=== PATIENT | male | born 1955 | race Caucasian/White ===

== ENCOUNTER 2020-09-13 10:05 | Emergency (ER) | payer MEDICARE, OTHER, SELFPAY ==
[2020-09-13 10:11] VITALS: BP 137/88; PULSE 78; RESP 16; TEMP 36.9; O2SAT 99
[2020-09-13] MEDS: CYCLOBENZAPRINE HCL 5 MG TABLET PO (11:16)
[2020-09-13] MEDS: KETOROLAC (*BKC) 60 MG/2 ML VIAL IM (11:18)
[2020-09-13 11:54] VITALS: BP 178/98; PULSE 75; RESP 16; O2SAT 100
--- NOTE | 2020-09-13 12:23 | ED.NECK ---
HPI - Neck Pain/Injury General Chief Complaint: Neck Pain/Injury Stated Complaint: neck pain Time Seen by Provider: 09/13/20 10:48 Source: patient and RN notes reviewed Mode of arrival: ambulatory Limitations: no limitations History of Present Illness HPI Narrative: This is a 64 year old male with history of chronic neck pain who presents for evaluation of neck stiffness. PAtient reports he has intermittent issues of worsening neck stiffness. He states he woke up yesterday morning with neck stiff ness. He states he just laid still and this morning his stiffness feels worse. He has minimal pain at rest but reports he has shooting pain when he tries to turn his neck. He has not taken any medication for his pain. He reports history of neck surgery but he has been having these issues with stiffness for 5 years . He denies nausea, vomiting, dysphagia, arm weakness, numbness or tingling. Related Data Home Medications Medication Instructions Recorded Confirmed aspirin 81 mg tablet,delayed 81 mg PO DAILY 12/24/18 08/08/20 release Allergies Allergy/AdvReac Type Severity Reaction Status Date / Time No Known Allergies Allergy Unverified 08/08/20 09:45 Review of Systems Review of Systems: All systems reviewed & are unremarkable except as noted in HPI and below PMFSH Past Medical History Medical History (Updated 09/13/20 @ 12:41 by Bridgette Elliott MD) Cervical radiculopathy Chronic neck pain Diabetes mellitus type 2, uncontrolled Surgical History Surgical History (Updated 06/19/20 @ 14:00 by Rachel Pimentel PA-C) H/O nasal septoplasty History of cervical discectomy S/P sinus surgery Family History Family History Father Hypertension Family history of coronary artery disease Social History Social History (Updated 08/08/20 @ 09:46 by Destiny Mendez) Smoking status: Never smoker Second hand tobacco smoke exposure: No Alcohol intake: never Substance use: never Substance use type: does not use Gender identity (if verbalized by the patient): Male Exam Const: General: no acute distress and alert Orientation/consciousness: patient oriented x3 Eyes: EOM: EOMs intact bilaterally Neck: Neck: no meningeal signs Chest: Chest palpation & inspection: normal inspection of the chest Resp: Effort & Inspection: normal respiratory effort and no retractions Auscultation: clear to auscultation bilaterally Cardio: Rate: regular rate Rhythm: regular rhythm Heart sounds: no murmurs Neuro: General: patient oriented x3 and moves all extremities Cranial nerves: Yes Nystagmus not present Psych: Mental Status: mental status grossly normal Affect: normal affect Course Reevaluation(s) Reevaluation #1: Patient states he is ready for discharge home. Date: 09/13/20 Time: 12:40 Vital Signs Vital signs: Vital Signs Temperature 98.5 F 09/13/20 10:11 Pulse Rate 78 09/13/20 10:11 Respiratory Rate 16 09/13/20 10:11 Blood Pressure 137/88 09/13/20 10:11 Pulse Oximetry 99 09/13/20 10:11 Temperature 98.5 F 09/13/20 10:11 Pulse Rate 77 09/13/20 12:46 Respiratory Rate 16 09/13/20 12:46 Blood Pressure 118/75 09/13/20 12:46 Pulse Oximetry 100 09/13/20 12:46 Discharge Plan Discharge Clinical Impression: Strain of neck muscle, Chronic neck pain Patient Disposition: Home, Self-Care Condition: Stable Instructions: Antibiotic Form, Cervical Strain (ED), Cervical Radiculopathy (ED) Prescriptions: New cyclobenzaprine 10 mg tablet 10 mg PO TID PRN (Reason: muscle spasm) Qty: 14 RF: 0 methylprednisolone [Medrol (Erick)] 4 mg tablets,dose pack See Rx Instructions .ROUTE .COMPLEX Qty: 21 RF: 0 naproxen 375 mg tablet 375 mg PO BID PRN (Reason: pain) Qty: 14 RF: 0 No Action aspirin 81 mg tablet,delayed release (DR/EC) 81 mg PO DAILY RF: 0 pantoprazole [Protonix] 40 mg
[2020-09-13 12:46] VITALS: BP 118/75; PULSE 77; RESP 16; O2SAT 100
== END 2020-09-13 12:47 | disposition home or self-care (01) ==
PROVIDERS: Emergency Provider General Practice; PCP Family Medicine
DX: S16.1XXA Strain of muscle, fascia and tendon at neck level, initial encounter (principal); M54.2 Cervicalgia; G89.29 Other chronic pain; E11.9 Type 2 diabetes mellitus without complications; Z79.82 Long term (current) use of aspirin; Z79.84 Long term (current) use of oral hypoglycemic drugs; Z79.899 Other long term (current) drug therapy; X58.XXXA Exposure to other specified factors, initial encounter
CPT/HCPCS: 96372; 99283; A9270; J1885

== ENCOUNTER → 2021-04-08 11:03 | Outpatient (CLI) | payer MEDICARE, OTHER, SELFPAY ==
--- NOTE | ~2021-04-08 | XR_ITS ---
[id number] 04/08/2021 11:21 Indication: Radiculopathy. Neck pain. Procedure: 3 views cervical spine Comparison: No prior studies for comparison. Findings: Reversal of cervical lordosis. No fracture, subluxation or dislocation. There is degenerati ve changes at C5-6 and C6-7. Vertebral body heights are maintained. Moderate multilevel uncinate dege nerative change. Lung apices are normal. No prevertebral soft tissue abnormality. Odontoid process is normal. Impression: 1: Moderate cervical spondylosis. Reviewed, dictated and finalized at location B. 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
== END ==
PROVIDERS: PCP Family Medicine; Visit Provider Family Medicine
DX: M47.22 Other spondylosis with radiculopathy, cervical region (principal)
CPT/HCPCS: 72040

== ENCOUNTER 2022-05-15 16:56 | Emergency (ER) | payer MEDICARE, OTHER, SELFPAY ==
--- NOTE | ~2022-05-15 | XR_ITS ---
EXAMINATION: XR elbow RT min 3V INDICATION: Right elbow pain TECHNIQUE: Four views of the right elbow are obtained. COMPARISON: None available FINDINGS: Bone alignment is normal. No fracture is identified. There appears to be an elbow joint eff usion. The soft tissues are unremarkable. IMPRESSION: 1. Elbow joint effusion, suggestive of occult fracture. Reviewed, dictated and finalized at location F.
[2022-05-15 16:58] VITALS: BP 141/69; PULSE 76; RESP 16; TEMP 36.6; O2SAT 99
--- NOTE | 2022-05-15 17:16 | PC.NURSE ---
Pt states that he is moving houses and has furniture rearranged. While attempting to use the bathroom Thursday night around 0200, pt tripped over items in his house and fell onto R elbow. Pt states he did not initially have too much pain, but states today after waking up the pain started to become more severe. Pt also noticed swelling to his R elbow. Pt only gets relief while holding the elbow at a 90 degree angle. Pt states he has taken tylenol for the pain with little relief while moving the right arm. PMS is present distal to the injury.
--- NOTE | 2022-05-15 18:26 | ED.UPPEXIN ---
HPI - Extremity Injury (Upper) General Chief Complaint: Extremity Injury, Upper Stated Complaint: elbow injury Time Seen by Provider: 05/15/22 17:06 Source: RN notes reviewed History of Present Illness HPI narrative: Patient presents emergency department from home for right elbow pain. Patient states he suffered a fall on the evening of May 13. States that [place] in [place] and he was getting up to go to the bathroom and tripped over some of the furniture he states he fell into a another piece of furniture striking his right elbow. States that since that time has had aching in the right elbow with pain with full extension and flexion when he tries to touch his nose. He denies any other trauma or injury. He denies any numbness or tingling in the extremities denies any pain in the shoulder or wrist Related Data Home Medications Medication Instructions Recorded Confirmed aspirin 81 mg tablet,delayed 81 mg PO DAILY 12/24/18 04/22/22 release Allergies Allergy/AdvReac Type Severity Reaction Status Date / Time No Known Allergies Allergy Verified 05/15/22 16:56 Review of Systems Review of Systems: Gen.: Denies fevers or chills Musculoskeletal: See HPI Neuro: Denies numbness, tingling, weakness Skin: Denies rash Endo: Denies DM PMFSH Past Medical History Medical History Cervical radiculopathy Chronic neck pain Controlled diabetes mellitus Diabetes mellitus type 2, uncontrolled Obesity Surgical History Surgical History H/O nasal septoplasty History of cervical discectomy S/P sinus surgery Family History Family History Father Hypertension Family history of coronary artery disease Social History Social History Smoking status: Never smoker Second hand tobacco smoke exposure: No Alcohol intake: never Substance use: never Substance use type: does not use Living arrangements: with family Occupation/Education: retired Gender identity (if verbalized by the patient): Male Sexual Orientation (if Verbalized by the Patient): Straight or Heterosexual Spiritual care concerns: No Exam Narrative: APPEARANCE: No acute distress, nontoxic, resting in bed Eyes: EOMI HEENT: Normocephalic, atraumatic, RESPIRATORY: No respiratory distress MUSCULOSKELETAl: Right elbow has mild swelling with no ecchymosis no tenderness palpation patient with pain only with full extension of the elbow and flexion greater than 90 degrees there is no tenderness of the right shoulder or wrist radial pulse 2+ neurovascular intact NEURO: Awake and alert. Following commands, speech normal, no focal deficits SKIN:: Warm, dry. Normal Color no rash or lesions Course Course Emergency Course: Called and discussed with Dr. Fletcher for orthopedic suspect occult radial head fracture request patient placed in sling with follow-up as an outpatient Discussed with patient results of workup and diagnosis. Discussed need for follow-up with primary care, proper use of medication, and reasons to return to the emergency department. Patient understands and agrees to current treatment plan Vital Signs Vital signs: Vital Signs Temperature 97.8 F 05/15/22 16:58 Pulse Rate 76 05/15/22 16:58 Respiratory Rate 16 05/15/22 16:58 Blood Pressure 141/69 H 05/15/22 16:58 Pulse Oximetry 99 05/15/22 16:58 Oxygen Delivery Room Air 05/15/22 16:58 Temperature 97.8 F 05/15/22 16:58 Pulse Rate 76 05/15/22 16:58 Respiratory Rate 16 05/15/22 16:58 Blood Pressure 141/69 H 05/15/22 16:58 Pulse Oximetry 99 05/15/22 16:58 Oxygen Delivery Room Air 05/15/22 16:58 MDM - Extremity Injury (Upper) MDM Narrative Medical decision making narrative: Patient with a fall 2 nights ago h
[2022-05-15] MEDS: IBUPROFEN 600 MG TABLET PO (18:57)
[2022-05-15 19:00] VITALS: BP 127/63; PULSE 67; RESP 18; O2SAT 100
--- NOTE | 2022-05-15 19:06 | PC.NURSE ---
PMS present after applying sling to right arm.
== END 2022-05-15 19:10 | disposition home or self-care (01) ==
PROVIDERS: Emergency Provider Emergency Medicine; PCP Family Medicine
DX: S59.901A Unspecified injury of right elbow, initial encounter (principal); M25.421 Effusion, right elbow; E11.9 Type 2 diabetes mellitus without complications; E66.9 Obesity, unspecified; Z68.28 Body mass index [BMI] 28.0-28.9, adult; Z79.82 Long term (current) use of aspirin; R93.6 Abnormal findings on diagnostic imaging of limbs; Z79.84 Long term (current) use of oral hypoglycemic drugs; W18.09XA Striking against other object with subsequent fall, initial encounter
CPT/HCPCS: 73080; 99283; A4565; A9270

== ENCOUNTER 2022-11-25 09:42 | Outpatient (CLI) | payer MEDICARE, OTHER, SELFPAY ==
[2022-11-25 10:56] LABS: Influenza A QL RT-PCR Negative (Negative); Influenza B QL RT-PCR Negative (Negative); SARS-CoV-2 RNA PCR Negative (Negative)
== END 2022-11-25 09:43 | disposition home or self-care (01) ==
LOC: ANHLAB 09:44
PROVIDERS: PCP Family Medicine; Visit Provider Physician Assistant
DX: R50.9 Fever, unspecified (principal); R05.9 Cough, unspecified; Z20.822 Contact with and (suspected) exposure to COVID-19
CPT/HCPCS: 87636

== ENCOUNTER 2023-02-26 08:35 | Outpatient (CLI) | payer MEDICARE, OTHER, SELFPAY ==
[2023-02-26 09:23] LABS: Influenza A QL RT-PCR Negative (Negative); Influenza B QL RT-PCR Negative (Negative); RSV RNA, RT-PCR Negative (Negative); SARS-CoV-2 RNA PCR Negative (Negative)
== END 2023-02-26 08:36 | disposition home or self-care (01) ==
LOC: ANHLAB 08:37
PROVIDERS: PCP Family Medicine; Visit Provider Physician Assistant Medical
DX: R05.9 Cough, unspecified (principal); R06.2 Wheezing; Z20.822 Contact with and (suspected) exposure to COVID-19
CPT/HCPCS: 87637

== ENCOUNTER 2023-03-09 13:46 | Outpatient (CLI) | payer MEDICARE, OTHER, SELFPAY ==
--- NOTE | ~2023-03-09 | XR_ITS ---
EXAMINATION: XR chest 2V 03/09/2023 14:08 INDICATION: Pneumonia. PROCEDURE: 2 view chest COMPARISON: 04/13/2012 FINDINGS: The lungs are clear. The cardiomediastinal silhouette is within normal limits. There are no pleural effusions. There is no pneumothorax suspected. IMPRESSION: 1: NO ACUTE CARDIOPULMONARY DISEASE. Reviewed, dictated and finalized at location B. CTOR OF PATIENT CARE
== END 2023-03-09 13:47 | disposition home or self-care (01) ==
PROVIDERS: PCP Family Medicine; Visit Provider Physician Assistant Medical
DX: R05.9 Cough, unspecified (principal); R06.2 Wheezing
CPT/HCPCS: 71046

== ENCOUNTER 2023-04-10 12:26 | Outpatient (CLI) | payer MEDICARE, OTHER, SELFPAY ==
--- NOTE | ~2023-04-10 | XR_ITS ---
Clinical Indication: Upper respiratory infection PA and lateral views of the chest: Comparison: 03/09/2023 Findings: The lungs are clear, without evidence of focal consolidation or pleural effusion. Cardiome diastinal silhouette is within normal limits. Bones and soft tissues are unremarkable. Impression: Normal chest. Reviewed, dictated and finalized at [facility]. 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
== END 2023-04-10 12:27 | disposition home or self-care (01) ==
PROVIDERS: PCP Family Medicine; Visit Provider Physician Assistant
DX: R05.9 Cough, unspecified (principal); J06.9 Acute upper respiratory infection, unspecified; R06.2 Wheezing
CPT/HCPCS: 71046

== ENCOUNTER 2023-04-22 12:25 | Outpatient (CLI) | payer MEDICARE, OTHER, SELFPAY ==
--- NOTE | ~2023-04-22 | CT_ITS ---
CT Scan of the Chest without Contrast: Clinical Indication: Chronic cough Technique: Contiguous sections were acquired throughout the chest without intravenous contrast. Dose reduction technique was used on this scan by utilizing automated exposure control and iterative recon struction technique. The dose-length product (DLP) was 226.04 mGy-cm. Findings: There is no evidence of any significant mediastinal, hilar or axillary lymphadenopathy. Coronary tawny ry calcifications are present. There is no evidence of pleural or pericardial effusion. 4 mm left basilar pulmonary nodule noted. Images through the upper abdomen reveal no abnormalities. Impression: 4 mm left basilar pulmonary nodule, most likely benign. According to Fleischner Society criteria, for a low-risk patient, no further follow-up required. For a high-risk patient, consider 12 month follow -up CT. Reviewed, dictated and finalized at [facility]. [employer] Impression: 4 mm left basilar pulmonary nodule, most likely benign. According to Fleischner Society criteria, for a low-risk patient, no further follow-up required. For a high-risk patient, consider 12 month follow-up CT.
== END 2023-04-22 12:26 | disposition home or self-care (01) ==
LOC: ANHIMG 12:25
PROVIDERS: PCP Family Medicine; Visit Provider Family Medicine
DX: R91.1 Solitary pulmonary nodule (principal); R05.3 Chronic cough
CPT/HCPCS: 71250

== ENCOUNTER 2023-08-26 10:10 | Outpatient (CLI) | payer MEDICARE, OTHER, SELFPAY | END 2023-08-26 10:11 | disposition home or self-care (01) | PROVIDERS: PCP Family Medicine; Visit Provider Family Medicine | DX: M25.561 Pain in right knee (principal) | CPT/HCPCS: 73562 ==

== ENCOUNTER 2023-10-30 07:58 | Outpatient (CLI) | payer MEDICARE, OTHER, SELFPAY ==
--- NOTE | 2023-10-30 15:55 | WPDPFTINT ---
PFT Procedure Performed PFT Procedure Performed Spirometry with Pre/Post Bronchodilator Plethysmography (Lung Vol) Diffusing Cap (DLCO) Flow Vol Loop PFT Interpretation Lung volumes were measured with the body plethysmography method. Lung volumes are unremarkable. Spirometry showed normal expiratory flow rates and a normal FEV1 to FVC ratio of 80%. Following administration of a bronchodilator there was no significant increase in expiratory flow rates. Lung diffusion capacity is within the normal range. The flow-volume loop is unremarkable. Impression: Spirometry, lung volumes, and lung diffusion capacity all within the normal range.
== END 2023-10-30 07:59 | disposition home or self-care (01) ==
LOC: ANHPFT 08:00
PROVIDERS: PCP Family Medicine; Visit Provider Family Medicine
DX: R05.3 Chronic cough (principal)
CPT/HCPCS: 94060; 94726; 94729

== ENCOUNTER 2023-11-08 09:16 | Emergency (ER) | payer MEDICARE, OTHER, SELFPAY ==
--- NOTE | ~2023-11-08 | XR_ITS ---
EXAMINATION: XR knee RT min 4V DATE: 11/08/2023 09:52 INDICATION: Right knee can't bear weight. Decreased range of motion. TECHNIQUE: 4 views of right knee were obtained. COMPARISON: Right knee radiographs 08/26/2023 FINDINGS: Alignment is normal. No fracture. There is mild tricompartmental osteoarthritis. No knee estuardo int effusion. IMPRESSION: 1. Mild right knee osteoarthritis. Reviewed, dictated and finalized at location A.
[2023-11-08 09:18] VITALS: BP 133/79; PULSE 66; RESP 17; TEMP 36.6; O2SAT 98
[2023-11-08 10:51] VITALS: BP 117/78; PULSE 63; RESP 18; TEMP 36.6; O2SAT 98
[2023-11-08] MEDS: KETOROLAC 30 MG/ML VIAL (*BKC) IM (10:52)
[2023-11-08] MEDS: HYDROcodone/acetaminophen (*CRX) 5-325 MG TABLET 1 TAB PO (10:53)
[2023-11-08] MEDS: methocarbamoL 750 MG TABLET PO (10:53)
--- NOTE | 2023-11-08 11:32 | ED.GENADULT ---
HPI - General Adult General Chief complaint: Extremity Injury, Lower Stated complaint: R. knee pain Time Seen by Provider: 11/08/23 09:51 History of Present Illness HPI narrative: This is a pleasant 68-year-old male presenting ED with right knee pain. The pain started yesterday evening. It is achy pain in his right knee that is worse with movement. No trauma fevers infection or swelling. Patient has had pain like this in the past as recently scheduled seen orthopedic surgeon but his pain improved and he did not follow-up. No other complaints at this time. He has taken Tylenol with minimal relief. Related Data Home Medications Medication Instructions Recorded Confirmed aspirin 81 mg tablet,delayed 81 mg PO DAILY 12/24/18 10/01/23 release Allergies Allergy/AdvReac Type Severity Reaction Status Date / Time No Known Allergies Allergy Verified 10/01/23 08:47 [facility] Past Medical History Medical History Cervical radiculopathy Chronic neck pain Controlled diabetes mellitus Degenerative joint disease of knee Diabetes mellitus type 2, uncontrolled Enlarged prostate with lower urinary tract symptoms (LUTS) Essential (primary) hypertension Gastro-esophageal reflux disease without esophagitis Obesity CL (obstructive sleep apnea) Pure hypercholesterolemia Right knee pain Surgical History Surgical History H/O nasal septoplasty History of cervical discectomy S/P sinus surgery Family History Family History Father Hypertension Family history of coronary artery disease Social History Social History Smoking status: Never smoker Second hand tobacco smoke exposure: No Alcohol intake: never Substance use: never Substance use type: does not use Do You Feel Safe in your Home?: Yes Lack of Transportation: No Lack of Food: Never True Current Housing: I Have Housing Concerned About Future Housing: No Difficulty Paying Gas/Electric Bills: No Difficulty Paying for Meds: No Currently Unemployed: No Education: Decline to Answer Difficulty w/ Childcare or Family Care: No Living arrangements: with family Occupation/Education: retired Gender identity (if verbalized by the patient): Male Sexual Orientation (if Verbalized by the Patient): Straight or Heterosexual Spiritual care concerns: No Exam Narrative: APPEARANCE: No apparent distress. Head: atraumatic. EYES: EOMI, NOSE: Atraumatic NECK: Trachea midline RESPIRATORY: No increased rate of breathing CARDIOVASCULAR: RRR, ABDOMINAL: Non-distended MUSCULOSKELETAl: Focal exam of the right knee revealed no swelling erythema or pain on passive motion. Worsening pain with active motion. Foot is neurovascularly intact. NEURO: Alert. Moving 4/4 extremities SKIN:: Warm, dry. Normal color PSYCHIATRIC: Normal affect Course Vital Signs Vital signs: Vital Signs Temperature 97.9 F 11/08/23 09:18 Pulse Rate 66 11/08/23 09:18 Respiratory Rate 17 11/08/23 09:18 Blood Pressure 133/79 11/08/23 09:18 Pulse Oximetry 98 11/08/23 09:18 Oxygen Delivery Room Air 11/08/23 09:18 Temperature 97.9 F 11/08/23 10:51 Pulse Rate 63 11/08/23 10:51 Respiratory Rate 18 11/08/23 10:51 Blood Pressure 117/78 11/08/23 10:51 Pulse Oximetry 98 11/08/23 10:51 Oxygen Delivery Room Air 11/08/23 09:18 Medical Decision Making [facility] Narrative Medical decision making narrative: -Course: 68-year-old male presenting with atraumatic right knee pain. Physical exam is unremarkable. X-ray showed arthritis. Patient's pain was treated he was discharged with primary care follow-up -DDX includes but is not limited to: Osteoarthritis, inflammatory arthritis, septic joint -Co-morbidities complicating care: H
[2023-11-08 11:44] VITALS: BP 119/71; PULSE 62; RESP 16; TEMP 36.2; O2SAT 99
== END 2023-11-08 11:46 | disposition home or self-care (01) ==
PROVIDERS: Emergency Provider Emergency Medicine; PCP Family Medicine
DX: M25.561 Pain in right knee (principal); I10 Essential (primary) hypertension; E11.9 Type 2 diabetes mellitus without complications; E78.00 Pure hypercholesterolemia, unspecified; E66.9 Obesity, unspecified; Z68.28 Body mass index [BMI] 28.0-28.9, adult; N40.1 Benign prostatic hyperplasia with lower urinary tract symptoms; M17.11 Unilateral primary osteoarthritis, right knee; G47.33 Obstructive sleep apnea (adult) (pediatric); K21.9 Gastro-esophageal reflux disease without esophagitis; Z79.82 Long term (current) use of aspirin; Z79.84 Long term (current) use of oral hypoglycemic drugs; Z79.85 Long-term (current) use of injectable non-insulin antidiabetic drugs
CPT/HCPCS: 73564; 96372; 99283; A9270; J1885

== ENCOUNTER 2023-11-13 08:50 | Outpatient (CLI) | payer MEDICARE, OTHER, SELFPAY ==
--- NOTE | ~2023-11-13 | US_ITS ---
EXAMINATION: US venous doppler LE RT DATE: 11/13/2023 09:31 INDICATION: Right lower limb pain, swelling and erythema TECHNIQUE: Grayscale ultrasound images without and with compression and Doppler ultrasound images of the right lower extremity veins were obtained. COMPARISON: None. FINDINGS: The visualized portions of right common femoral vein, profunda (deep) femoral vein, femoral vein, pop liteal vein, peroneal trunk, posterior tibial veins, peroneal veins, gastrocnemius vein and greater s aphenous vein outflow are patent. IMPRESSION: 1. No deep venous thrombosis in the right lower limb. Reviewed, dictated and finalized at location A.
== END 2023-11-13 08:51 | disposition home or self-care (01) ==
PROVIDERS: PCP Family Medicine; Visit Provider Physician Assistant Medical
DX: M79.604 Pain in right leg (principal); M25.561 Pain in right knee
CPT/HCPCS: 93971

== ENCOUNTER 2023-11-27 14:19 | Outpatient (CLI) | payer MEDICARE, OTHER, SELFPAY ==
--- NOTE | ~2023-11-27 | MR_ITS ---
EXAMINATION: MR knee RT wo con DATE: 11/27/2023 14:59 INDICATION: Right knee pain. TECHNIQUE: Magnetic resonance imaging (MRI) of the right knee was performed without intravenous contr ast. Sequences included axial PD-weighted FS FSE, coronal PD-weighted FSE and PD-weighted FS FSE, sag ittal PD-weighted FSE, and sagittal T2-weighted FS FSE. COMPARISON: Right knee radiographs 11/08/2023 FINDINGS: Medial compartment: There is a complex tear of body and posterior horn of medial meniscus. There is cartilage surface irr egularity of tibial condyle. There is shallow partial-thickness cartilage loss of femoral condyle, wo rst at the central articular surface. Tiny osteophytes are noted. Lateral compartment: Lateral meniscus is normal. Lateral compartment cartilage is normal. Tiny osteophytes are noted. Patellofemoral compartment: There is shallow partial-thickness cartilage loss of patellar medial and lateral facets and median ri dge. There is partial-thickness cartilage loss of trochlea, deep at the medial and central trochlea w ith mild subchondral edema-like marrow signal intensity. Osteophytes are noted. Ligaments and tendons: The anterior and posterior cruciate ligaments are normal. There are changes of prior sprains of media l collateral ligament and fibular collateral ligament characterized by increased signal intensity pro ximally. There is mild patellar tendinopathy. Fluid: There is a moderate-sized knee joint effusion. There is mild prepatellar and superficial infrapatella r bursitis. IMPRESSION: 1. Moderate chondrosis of patellofemoral compartment and mild chondrosis of medial compartment. 2. Tear of medial meniscus. 3. Moderate-sized knee joint effusion. Reviewed, dictated and finalized at location A. IMPRESSION: 1. Moderate chondrosis of patellofemoral compartment and mild chondrosis of med ial compartment. 2. Tear of medial meniscus. 3. Moderate-sized knee joint effusion.
== END 2023-11-27 14:20 | disposition home or self-care (01) ==
LOC: MICIMG 14:20
PROVIDERS: PCP Family Medicine; Visit Provider Nurse Practitioner Family
DX: M25.461 Effusion, right knee (principal); S83.241D Other tear of medial meniscus, current injury, right knee, subsequent encounter; X58.XXXD Exposure to other specified factors, subsequent encounter
CPT/HCPCS: 73721

== ENCOUNTER 2023-12-08 11:14 | Outpatient (CLI) | payer MEDICARE, OTHER, SELFPAY ==
--- NOTE | 2023-12-08 11:30 | ECG_ITS ---
Test Date: 2023-12-08 11:43:01 Measurements Intervals [place] Rate: 63 P: 92 GA: 165 QRS: -10 QRSD: 104 T: 42 QT: 390 QTc: 401 Interpretive Statements SINUS RHYTHM NORMAL EKG No previous ECG available for comparison Electronically Signed On 12-09-2023 10:11:32 CDT by Jose Juarez M.D.
[2023-12-08 12:07] LABS: Anion Gap 11 mmol/L (4-12); Blood Urea Nitrogen 13 mg/dL (9-20); Calcium 9.3 mg/dL (8.4-10.2); Carbon Dioxide 31 mmol/L (22-30); Chloride 97 mmol/L (98-107); Estimated Glomerular Filt Rate > 60; Glucose 140 mg/dL (65-110); Potassium 3.2 mmol/L (3.4-5.0); Sodium 139 mmol/L (137-145)
== END 2023-12-08 11:15 | disposition home or self-care (01) ==
LOC: ANHSURGERY 11:19
PROVIDERS: Anesthesiology; PCP Family Medicine; Visit Provider Orthopaedic Surgery
DX: Z01.818 Encounter for other preprocedural examination (principal); E11.65 Type 2 diabetes mellitus with hyperglycemia; I10 Essential (primary) hypertension
CPT/HCPCS: 36415; 80048; 93005

== ENCOUNTER 2023-12-09 02:53 | Day surgery (SDC) | payer MEDICARE, OTHER, SELFPAY ==
[2023-12-08 08:18] VITALS: BMI 28.6
--- NOTE | 2023-12-08 08:30 | PC.NURSE ---
Report to the Outpatient Waiting Room, entrance under the green pavilion located off [facility], at time __0630am_on date _12/09/23 . Planned Procedure Time: __08:30am .? Time changes happen often and if your time is changed the preop area will call you the afternoon before. - You and your visitor will be asked to self-screen and do not enter if you have any COVID symptoms. Please call surgeon if you need to reschedule. - A mask is optional within the hospital at this time. Patients may have clear liquids (water, carbonated beverages, clear teas, apple juice) until 3 hours prior to surgery with a maximum of 20 ounces. - No food from midnight until time of surgery and no smoking (0530am) Take only the following medications with a SIP of water on the morning of surgery: _Amlodipine, Coreg, Hydralizine ____Inhalers as needed DO NOT STOP ANY OF YOUR OTHER PRESCRIPTION MEDICATIONS PRIOR TO SURGERY EXCEPT THE FOLLOWING Medications to discontinue per physician Hold Aspirin and Trilogy till post op per Dr Nunes Date to take last dose__12/07/23 Please no make-up, nail french, hairspray, perfume, deodorant, or body powder the day of surgery.? No jewelry (including any body piercings) or valuables the day of surgery, leave them at home.? Please take a shower or bath the night before, or the morning of, surgery with an antibacterial soap.? Wear comfortable, loose fitting clothing. Hibicleanse scrub as directed per . - Jewelry must be removed prior to entering the operating room.? Rings and piercings that are not removed may be cut off. - The hospital will not accept responsibility for valuables.? - Please leave all valuables, including medications, at home the day of surgery. If you are going home after surgery, a licensed medical driver must drive you home.? - NO public transportation without another adult if you receive anesthesia. - We recommend that an adult stay with you for 24 hours following discharge. - We also recommend that you do not drive, make important decision, drink alcoholic beverages, or take any drugs that were not prescribed by your health care provider for at least 24 hours after your discharge time. Follow any additional instructions given to you from your surgeon. Telephone instructions given to __patient and asked if any additional questions and then verbalized understanding. Patient advised to call surgeon office or pre surgery nurse liaison [phone] if any additional questions.
[2023-12-09] VITALS (8 sets, daily range): BP systolic 99–124; BP diastolic 59–72; PULSE 66–74; RESP 12–68; TEMP 36.2–36.4; O2SAT 97–99; BMI 29.2
[2023-12-09] MEDS: CELECOXIB 200 MG CAPSULE PO (07:00)
[2023-12-09] MEDS: ACETAMINOPHEN 500 MG TABLET 1000 MG PO (07:00)
[2023-12-09 07:21] LABS: Glucose Point of Care 142 mg/dl (65-105)
--- NOTE | 2023-12-09 07:43 | WPDANESEPPF ---
Anes - Initial Pre Proc Eval Procedure: Operation Date: 12/09/23 08:30 Proposed Procedures p Right Knee Arthroscopy - Tono Nunes MD Date/Time: 12/09/23 07:43 Surgeon: Tono Nunes MD Pre Op Diagnosis: right knee medial meniscus tear Patient Data Age: 68 Gender: M Height: 1.75 m Weight: 88 kg Allergies Allergy/AdvReac Type Severity Reaction Status Date / Time No Known Allergies Allergy Verified 12/08/23 08:11 Home Medications Medication Instructions Recorded Confirmed Type aspirin 81 mg tablet,delayed 81 mg PO DAILY 12/24/18 12/08/23 History release blood sugar diagnostic (FreeStyle #100 ea 12/31/22 11/13/23 Rx Lite Strips) potassium chloride 10 mEq 20 meq PO DAILY #180 tabs 12/31/22 12/08/23 Rx tablet,extended release albuterol sulfate 90 mcg/actuation 1 inh inhalation Q4H PRN shortness 02/26/23 12/08/23 Rx aerosol inhaler of breath or wheezing #8.5 grams fluticasone propionate 50 2 spray intranasal DAILY #16 grams 02/26/23 12/08/23 Rx mcg/actuation nasal spray,suspension amlodipine 10 mg tablet 10 mg PO DAILY #90 tabs 04/20/23 12/08/23 Rx losartan 100 mg tablet 100 mg PO DAILY #90 tabs 04/20/23 12/08/23 Rx fluticasone fur. 100 mcg-umeclid 1 inh inhalation DAILY #180 ea 05/18/23 12/08/23 Rx 62.5 mcg-vilant 25 mcg inhalat.powder (Trelegy Ellipta) empagliflozin 25 mg tablet 25 mg PO DAILY #90 tabs 06/15/23 12/08/23 Rx (Jardiance) pravastatin 20 mg tablet 20 mg PO DAILY #90 tabs 06/15/23 12/08/23 Rx chlorthalidone 25 mg tablet 12.5 mg PO DAILY #45 tabs 08/26/23 12/08/23 Rx carvedilol 25 mg tablet (Coreg) 25 mg PO Q12H #180 tabs 09/07/23 12/08/23 Rx metformin 500 mg tablet,extended 1,000 mg PO BID #360 tabs 09/07/23 12/08/23 Rx release 24 hr hydralazine 50 mg tablet 50 mg PO BID #180 tabs 10/05/23 12/08/23 Rx dulaglutide 1.5 mg/0.5 mL 1.5 mg (0.5 mL) subcut WEEKLY #6 mL 10/15/23 12/08/23 Rx subcutaneous pen injector acetaminophen 500 mg tablet 1,000 mg PO TID PRN chris 7 days #42 11/08/23 12/08/23 Rx tabs chlorhexidine gluconate 4 % 1 applic topical ONCE #237 mL 12/07/23 12/08/23 Rx topical liquid (Hibiclens) pantoprazole 40 mg tablet,delayed 40 mg PO HS 12/08/23 12/08/23 History release (Protonix) tamsulosin 0.4 mg capsule (Flomax) 0.8 mg PO HS 12/08/23 12/08/23 History Laboratory Tests 12/09/23 07:18 POC Capillary Glucose 142 H mg/dl (65-105) Patient hx anesthesia problems: none Family hx anesthesia problems: none Results Review: All pre-operative results and documents have been reviewed as part of the pre-operative evaluation. [facility] Past Medical History Medical History Cervical radiculopathy Chronic neck pain Controlled diabetes mellitus Degenerative joint disease of knee Diabetes mellitus type 2, uncontrolled Enlarged prostate with lower urinary tract symptoms (LUTS) Essential (primary) hypertension Gastro-esophageal reflux disease without esophagitis Medial meniscus tear Obesity LC (obstructive sleep apnea) Pure hypercholesterolemia Right knee pain Surgical History Surgical History H/O nasal septoplasty History of cervical discectomy S/P sinus surgery Family History Family History Father Hypertension Family history of coronary artery disease Social History Social History Smoking status: Never smoker Second hand tobacco smoke exposure: No Alcohol intake: never Substance use: never Substance use type: does not use Do You Feel Safe in your Home?: Yes Lack of Transportation: No Lack of Food: Never True Current Housing: I Have Housing Concerned About Future Housing: No Difficulty Paying Gas/Electric Bills: No Difficulty Paying for Meds: No Currently Unemployed: No
[2023-12-09] MEDS: LACTATED RINGERS 1,000 ML 30 ML IV CONT (07:51)
--- NOTE | 2023-12-09 08:21 | WPDHPUPDATE1 ---
History and Physical Update Update Date/Time: 12/09/23 08:21 History and Physical has been reviewed, including an updated exam of the patient. There are NO changes in the patient's condition. Risks, benefits, and alternatives have been discussed and questions answered. Patient agrees to proceed with procedure.
[2023-12-09] MEDS: ceFAZolin 2 GM/D5W 50 ML 2 GM/50 ML BAG IVPB (08:34)
[2023-12-09] MEDS: BUPivacaine HCL 0.5% PF 30 ML VIAL INFILTRATE (08:59)
[2023-12-09] MEDS: methylPREDNISolone ACETATE 80 MG/ML VIAL IM (09:56)
--- NOTE | 2023-12-09 10:16 | W.PM.PROC2 ---
Procedure Note - Detailed Date of Procedure 12/09/23 Pre-op Diagnosis right knee medial meniscus tear Post-op Diagnosis Same Procedure Performed RIGHT KNEE SCOPE Surgeon Tono Nunes MD Anesthesia General Description of Procedure PATIENT WAS TAKEN TO THE OR. RIGHT LEG WAS PREPPED AND DRAPED STERILE. TROCARS WERE PLACED IN THE USUAL FASHION. THERE WAS A LARGE EFFUSION. CAMERA WAS INTRODUCED. THERE WAS SEVERE CHONDROMALACIA TO THE PATELLA FEMORAL JOINT MOSTLY ON THE TROCHLEA. THERE WAS A LOT OF SYNOVITIS IN ALL COMPARTMENTS. THE MEDIAL COMPARTMENT SHOWED CHONDROMALACIA TO THE MEDIAL FEMORAL CONDYLE. A SHAVER WAS USED TO PREFORM A CHONDROPLASTY. THERE WAS A COMPLEX MEDIAL MENISCUS TEAR. THE TEAR WAS RESECTED WITH A BITER AND A SHAVER DOWN TO A SMOOTH BASE. THE ACL WAS INTACT. THE LATERAL MENISCUS WAS NOT TORN. THE LATERAL COMPARTMENT HAD MINIMAL CHONDROMALACIA. A SYNOVECTOMY WAS PREFORMED WELL. THE PATELLO FEMORAL JOINT UNDERWENT CHONDROPLASTY. THERE WAS GRADE 3 AND 4 CHONDROMALACIA IN PART OF THE TROCHLEA AND GRADE 2 ON THE PATELLA. SYNOVECTOMY WAS PREFORMED IN THE SUPERIOR MEDIAL COMPARTMENT. THE WOUNDS WERE APPROXIMATED WITH 4.0 NYLON. STERILE DRESSING WAS APPLIED. PATIENT WAS EXTUBATED. Estimated Blood Loss 5 Complications No immediate complications Condition Stable Disposition PACU
[2023-12-09] MEDS: oxyCODONE HCL (*CRX) 5 MG TAB IR PO (11:20)
== END 2023-12-09 12:35 | disposition home or self-care (01) ==
PROVIDERS: PCP Family Medicine; Visit Provider Orthopaedic Surgery
PROC: (CPT 29870; principal; 2023-12-09 08:30)
DX: S83.231A Complex tear of medial meniscus, current injury, right knee, initial encounter (principal); M25.461 Effusion, right knee; M94.261 Chondromalacia, right knee; M65.861 Other synovitis and tenosynovitis, right lower leg; I10 Essential (primary) hypertension; E11.9 Type 2 diabetes mellitus without complications; K21.9 Gastro-esophageal reflux disease without esophagitis; G47.33 Obstructive sleep apnea (adult) (pediatric); N40.1 Benign prostatic hyperplasia with lower urinary tract symptoms; G89.29 Other chronic pain; M54.2 Cervicalgia; Z79.82 Long term (current) use of aspirin; Z79.51 Long term (current) use of inhaled steroids; Z79.84 Long term (current) use of oral hypoglycemic drugs; Z79.85 Long-term (current) use of injectable non-insulin antidiabetic drugs; Z98.890 Other specified postprocedural states; Z82.49 Family history of ischemic heart disease and other diseases of the circulatory system; X58.XXXA Exposure to other specified factors, initial encounter
CPT/HCPCS: 29881; 82948; A9270; J0690; J1010; J1100; J2003; J2405; J2704; J3010; J3301; J7120